=== PATIENT | female | born 1985 | race Caucasian/White ===

== ENCOUNTER 2016-12-18 14:06 | Emergency (ER) | payer OTHER ==
[~2016-12-18 14:06] MED LIST: AMPICILLIN PO; BACTRIM DS TABL1 TA1 PO; BACTRIM DS TABL1 TAB PO; CERTAGEN PO; MACROBID100 MG PO; METHADONE PO; MOBIC15 MG PO; NO MEDICATIONS; PAXIL10 MG PO; PHENERGAN25 MG PO; PRENATAL1 TA1 PO; PROCARDIA10 MG PO; PYRIDIUM PO; REMERON15 MG PO; ROBAXIN PO; ROBAXIN500 MG; SEPTRA DS PO; TORADOL10 MG PO; ZOFRAN ODT4 MG/UDTAB PO; ZUBSOLV 1.4-0.1 EACH SL
[2016-12-18 14:32] LABS: INFLUENZA A NEG (NEG)
[2016-12-18 14:33] LABS: INFLUENZA B POS (NEG)
== END 2016-12-18 15:16 | disposition home or self-care (01) ==
LOC: SED 14:06
PROVIDERS: Nurse Practitioner Family
DX: J10.1 Influenza due to other identified influenza virus with other respiratory manifestations (principal); J45.909 Unspecified asthma, uncomplicated; F17.210 Nicotine dependence, cigarettes, uncomplicated; Z79.899 Other long term (current) drug therapy; Z88.5 Allergy status to narcotic agent
CPT/HCPCS: 87804; 99283

== ENCOUNTER 2017-01-06 17:18 | Emergency (ER) | payer OTHER | END 2017-01-06 17:24 | disposition home or self-care (01) | LOC: SED 17:18 | DX: S40.862A Insect bite (nonvenomous) of left upper arm, initial encounter (principal); I89.1 Lymphangitis; J45.909 Unspecified asthma, uncomplicated; F17.200 Nicotine dependence, unspecified, uncomplicated; Z88.5 Allergy status to narcotic agent; W57.XXXA Bitten or stung by nonvenomous insect and other nonvenomous arthropods, initial encounter | CPT/HCPCS: 99282 ==

== ENCOUNTER 2017-05-01 13:04 | Emergency (ER) | payer OTHER ==
[~2017-05-01] VITALS: Ht 149.9 cm; Wt 39.5 kg
--- NOTE | ~2017-05-01 | CT4 ---
[facility]. [facility] A Service of [facility] RADIOLOGY TEXT RESULTS PATIENT: SNOW YOUSIF LOCATION: SED : 89 UNIT #: [id number] AGE: [address]: Dean Shipley MD SEX: F ORDER DR: [id number] [address] [address] [id number] E MR#: [id number] Acc #: [id number] NAME: SNOW YOUSIF : 1985 SEX: F STUDY DATE/TIME: 05/01/2017 14:47 UNIT: SED ROOM: STUDY DESCRIPTION: CT Abd and Pelv Wo Cont Attending Physician: Dean Shipley M.D. Ordering Physician: Dean Shipley M.D. Primary Care Physician: Damion Johansen M.D. MEDICAL IMAGING REPORT This report is preliminary unless electronic signature is present. EXAM CT abdomen and pelvis without contrast DATE 05/01/2017 HISTORY Removal of stent from left kidney this morning, vomiting and pain since stent was placed Tuesday. Previous history of kidney stones with lithotripsy procedures. COMPARISON CT abdomen and pelvis with contrast 04/08/2016. PROCEDURE 3 mm noncontrast axial images through the abdomen and pelvis. Enteric contrast not administered. Sagittal and coronal reformatted images were obtained. This CT exam was performed with one or more of the following radiation dose reduction techniques: Automatic exposure control, adjustment of mA and/or kV according to patient size, and iterative reconstruction. 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 Punctate nonobstructing calculi are seen within the right kidney. There is a dominant stone within the left lower renal pole measuring 7 mm. There is dbng-nl-[id number] left hydronephrosis and hydroureter, but no obstructing ureteral stone is identified. There is abnormal urothelial thickening and stranding surrounding the left renal pelvis and left ureter, suggesting features of pyelonephritis. Lung bases are free of consolidation. The liver, gallbladder, spleen, pancreas and adrenal glands are normal. There is moderate generalized STS. [facility] A Service of [facility] RADIOLOGY TEXT RESULTS PATIENT: SNOW YOUSIF LOCATION: [facility] [place] : [birth year] UNIT #: [id number] AGE: [address]: Dean Shipley MD SEX: F ORDER DR: colonic stool burden without evidence of high-grade large or small bowel obstruction. The appendix is not distinctly visualized, but no pericecal inflammation is appreciated. PELVIS FINDINGS: Right ovarian cyst measures 1.8 cm. Uterus is retroflexed. Small quantity pelvic free fluid is incidentally noted. Urinary bladder appears unremarkable. Rectum is within normal limits. No acute osseous abnormalities are identified. IMPRESSION 1. Features of bilateral medullary nephrocalcinosis with punctate right renal calculi, and dominant 7 mm left lower renal pole stone. 2. Rieb-jq-iwuxmkrk left hydronephrosis and hydroureter with urothelial thickening in the left renal pelvis and left ureter. Findings suggestive of acute pyelonephritis and ureteritis. No obstructing ureteral stone is identified. 3. Moderate generalized colonic stool burden. Correlate for constipation symptoms. 4. 1.8 cm right ovarian cyst. 5. Small quantity pelvic free fluid is nonspecific and may be physiologic or related to cyst rupture. Dictated by... Odalys Marquez M.D. THIS IS AN ELECTRONICALLY VERIFIED REPORT Odalys Marquez M.D. at 05/02/2017 9:54 AM ALEXIA/sean TD: 05/01/2017 17:07 JOB #: [id number] MEDICAL IMAGING REPORT Page 1 of 1
[2017-05-01 14:27] LABS: BASOPHIL% 0.2 % (0-2.5); EOSINOPHIL# 0.1 X10e3 (0-0.7); EOSINOPHIL% 0.4 % (0.0-7.0); LYMPHOCYTE# 0.8 X10e3 (1.0-3.5); LYMPHOCYTE% 5.3 % (17.0-45.0); MEAN CELL VOLUME 88.1 FL (83-96); MONOCYTE# 0.3 X10e3 (0-1.0); MONOCYTE% 2.2 % (3.0-12.0); NEUTROPHIL# 13.9 X10e3 (1.5-7.1); NEUTROPHIL% 91.9 % (40-75); PLATELET COUNT 268 X10e3 (140-420); RED BLOOD COUNT 4.99 X10e (3.90-5.30); RED CELL DISTRIBUTION WIDTH 13.5 % (11.0-15.5); WHITE BLOOD COUNT 15.1 X10e3 (4.0-10.5)
[2017-05-01 14:36] LABS: DIFF IND NO
[2017-05-01 14:57] LABS: BUN/CREATININE RATIO 14.44; CREATININE SERUM 0.9 mg/dL (0.6-1.4); GLOM FILT RATE Estimated 86.5 mL/min (>60)
[2017-05-01 15:32] LABS: URINE SOURCE CLEAN CATCH
[2017-05-01 15:35] LABS: URINE APPEARANCE CLEAR; URINE BILIRUBIN NEG (NEG); URINE BLOOD 3+ (NEG); URINE COLOR YELLOW; URINE GLUCOSE NEG (NORM); URINE LEUKOCYTE ESTERASE 2+ (NEG); URINE NITRATE NEG (NEG); URINE PH 6.5 (5-8); URINE PROTEIN 2+ (NEG); URINE SPECIFIC GRAVITY 1.025 (1.003-1.035); URINE UROBILINOGEN 0.2 MG/DL (NORM)
[2017-05-01 15:39] LABS: MICRO INDICATED? YES; URINE KETONE 2+ (NEG)
[2017-05-01 15:45] LABS: CULTURE INDICATED? YES; URINE BACTERIA 1+ (NEG); URINE RBC 25-50 /[HPF] (0-2); URINE SQUAMOUS EPITHELIAL CELL MODERATE /[HPF]
[2017-05-01 16:47] LABS: AMPHETAMINE NEG (NEG); BARBITURATES NEG (NEG); BENZODIAZEPINES POS (NEG); COCAINE NEG (NEG); MARIJUANA POS (NEG); OPIATES POS (NEG); TRICYCLIC ANTIDEPRESSANTS NEG (NEG); U METHADONE POS (NEG)
== END 2017-05-01 17:17 | disposition home or self-care (01) ==
LOC: SED 13:04
PROVIDERS: Emergency Medicine
DX: N12 Tubulo-interstitial nephritis, not specified as acute or chronic (principal); F41.9 Anxiety disorder, unspecified; Z87.442 Personal history of urinary calculi; F17.200 Nicotine dependence, unspecified, uncomplicated; Z88.8 Allergy status to other drugs, medicaments and biological substances
CPT/HCPCS: 36415; 74176; 80048; 80307; 81003; 84703; 85025; 87086; 96361; 96374; 96375; 99284; J0696; J2270; J2405; J2550